=== PATIENT | male | born 1950 | race African-American/Black ===

== ENCOUNTER 2024-10-29 13:55 | Emergency (ER) | payer OTHER, MEDICAID ==
[~2024-10-29] VITALS: Ht 182.9 cm; Wt 64.0 kg
[2024-10-29 14:01] VITALS: O2SAT 95
[2024-10-29] MEDS ORDERED: DEXAMETHASONE 10 MG/ML VIAL IV ONE (15:15)
[2024-10-29] MEDS ORDERED: EPINEPHRINE 1:1000 1 MG/ML AMP IM ONE (15:15)
[2024-10-29 16:44] LABS: BASOPHILS % 0.5 % (0.0-2.0); HEMATOCRIT. 23.9 % (42.0-52.0); HEMOGLOBIN. 7.7 g/dL (14.0-18.0); LYMPHOCYTES % 21.1 % (20.0-50.0); MEAN CORPUSCULAR HEMOGLOBIN 24.6 pg (28.0-32.0); MEAN CORPUSCULAR HGB CONC 32.2 g/dL (31.0-37.0); MEAN CORPUSCULAR VOLUME 76.4 fL (80.0-94.0); MEAN PLATELET VOLUME 6.5 fl (7.4-10.4); MONOCYTES % 8.5 % (2.0-8.0); NEUTROPHILS % 67.9 % (40.0-76.0); PLATELET 390 x1000/uL (130-400); RED BLOOD CELL COUNT 3.13 mill/uL (4.7-6.1); RED CELL DISTRIBUTION WIDTH 23.2 % (11.6-14.6); WHITE BLOOD COUNT 9.2 x1000/uL (4.5-11.0)
[2024-10-29 16:49] LABS: ADD RBC MORPHOLOGY YES; DIFFERENTIAL COMMENT 1
[2024-10-29 16:56] LABS: POTASSIUM 4.1 mEq/L (3.5-5.1)
[2024-10-29 17:02] LABS: CREATININE 1.5 mg/dL (0.6-1.3)
[2024-10-29 17:14] LABS: ANISOCYTOSIS 2+; HYPOCHROMASIA 1+; MICROCYTOSIS 1+; PLATELET ESTIMATE NORMAL
[2024-10-29 17:30] VITALS: TEMP 37.11408
[2024-10-29] MEDS: DEXAMETHASONE 10 MG/ML VIAL IV NR (18:00)
[2024-10-29] MEDS: EPINEPHRINE 1:1000 1 MG/ML AMP IM NR (18:45)
[2024-10-29] MEDS: TRANEXAMIC ACID 1,000MG/10ML IV ONE (18:45)
[2024-10-29 21:15] VITALS: BP 147/69; PULSE 76; RESP 18; O2SAT 95
== END 2024-10-29 19:49 | disposition home or self-care (01) ==
LOC: ER 13:55
DX: T78.3XXA Angioneurotic edema, initial encounter (principal); Y92.89 Other specified places as the place of occurrence of the external cause; I10 Essential (primary) hypertension; E78.5 Hyperlipidemia, unspecified; E11.9 Type 2 diabetes mellitus without complications
CPT/HCPCS: 99284; 96374; 96375; 80048; 85025; 36415; 96372; J1100; J3490